=== PATIENT | female | born 1980 | race Two or more races ===

== ENCOUNTER 2018-05-28 09:47 | Day surgery (SDC) | payer OTHER ==
[~2018-05-28] VITALS: Ht 158.8 cm; Wt 68.9 kg
[~2018-05-28 09:47] MED LIST: ACYC400T PO; ALPR0.5T PO; BUPIVACAINE-EPI 0.5%-1:200000 50 ML VIAL. ONE; ESCITALOPRAM OX10 MG PO; IOHEXOL 300 MG/ML 100ML VIAL. ONE; IV RINGERS,LACTATED 1000ML 1,000 ML IV SCH; SUMA100T3 PO; SURGICEL HEMOSTAT 4X8 EACH. ONE
[2018-05-28] MEDS ORDERED: PROCHLORPERAZINE 10 MG/2 ML VIAL. IV PRN (10:00)
[2018-05-28] MEDS ORDERED: LIDOCAINE 1% PF 2 ML VIAL. ID PRN (10:00)
[2018-05-28] MEDS ORDERED: fentaNYL PF VIAL 100 MCG/2 ML VIAL IV PRN ×2 (10:00)
[2018-05-28] MEDS ORDERED: MORPHINE SULFATE 2 MG/ML VIAL. IV PRN (10:00)
[2018-05-28] MEDS ORDERED: HYDROmorphone 2 MG/ML VIAL IV PRN (10:00)
[2018-05-28 10:25] LABS: U PREG PATIENT NEGATIVE (NEG)
[2018-05-28] MEDS ORDERED: PROPOFOL 20 ML IV ONE (10:56)
[2018-05-28] MEDS ORDERED: DEXAMETHASONE SOD PHOS 20 MG/5 ML VIAL. ONE (10:56)
[2018-05-28] MEDS ORDERED: fentaNYL PF VIAL 100 MCG/2 ML VIAL ONE ×3 (10:56→13:21)
[2018-05-28] MEDS ORDERED: ROCURONIUM 50 MG/5 ML VIAL. ONE (10:56)
[2018-05-28] MEDS ORDERED: MIDAZOLAM HCL/PF 2 MG/2 ML VIAL. ONE (10:56)
[2018-05-28] MEDS ORDERED: ONDANSETRON PF 4 MG/2 ML VIAL. ONE (10:56)
[2018-05-28] MEDS ORDERED: KETOROLAC 30 MG/ML INJ FOR OR. INJ ONE (12:03)
--- NOTE | 2018-05-28 12:09 | RAD ---
EXAM: Intraoperative cholangiogram. HISTORY: Cholecystectomy. COMPARISON: None. FINDINGS: 3 fluoroscopic images of the abdomen were obtained during an intraoperative glandular grams. The images demonstrate contrast desiccation of the biliary tree and proximal duodenum. No retained stone or stricture is seen. There is outpouching along the distal common bile duct likely due to the downstream pancreatic duct. The total fluoroscopy time is 14 seconds. IMPRESSION: Intraoperative cholangiogram without evidence of a retained stone. Electronically signed by: Marlys Suarez MD (05/28/2018 12:05 PM) [place] [id number]
[2018-05-28] MEDS ORDERED: SEVOFLURANE 61 TO 120 MINUTES. IH ONE (12:10)
[2018-05-28] MEDS ORDERED: GLYCOPYRROLATE 1 MG/5 ML VIAL. ONE (12:10)
[2018-05-28] MEDS ORDERED: NEOSTIGMINE METHYLSULFATE 5 MG/5 ML SYRINGE. ONE (12:10)
--- NOTE | 2018-05-28 12:37 | PDOC4 ---
Operative Note Operative Note Operative Note: Preoperative Diagnosis: Symptomatic cholelithiasis Postoperative Diagnosis: Same Procedure: Laparoscopic cholecystectomy with intraoperative cholangiogram Surgeons: Isaac Anesthesia: Gen. Estimated Blood Loss: 10 mL Specimen: Gallbladder to pathology Drains: None Complications: None Indications: The patient is a 37 year old female who is been experiencing recurrent upper abdominal pain consistent with biliary colic. Surgical treatment was offered by means of a laparoscopic cholecystectomy. The risks of surgery were discussed which include bleeding, infection, bile duct injury, bile leak, pain, the potential for additional surgeries or procedures. The patient understands and would like to proceed. Description: The patient was taken to the operating room and laid supine on the operating table. General anesthesia was performed. The abdomen was prepped with ChloraPrep and draped in a standard surgical fashion. A small infraumbilical incision was made with a scalpel. The Veress needle was then inserted and a pneumoperitoneum was then created. A 5 mm trocar was then inserted and the laparoscope was introduced. In the upper midabdomen a 5 mm trocar was inserted and in the right upper quadrant two 2.3 mm mini lap graspers were inserted. The gallbladder was retracted cephalad. The cystic duct was dissected free from surrounding tissues. One clip was placed on the duct near the gallbladder junction. An opening was made in the duct and a cholangiocatheter placed within and secured with a clip. Using contrast dye and fluoroscopy an intraoperative cholangiogram was performed that appeared unremarkable. The clip and catheter were then withdrawn. Three clips were placed on the cystic duct and it was divided. The cystic artery was then identified, dissected free, doubly clipped and divided as well. The gallbladder was then mobilized away from the liver with cautery. The umbilical 5 millimeter trocar was exchanged for an 11 millimeter trocar. The gallbladder was then placed in an endoscopic bag and extracted at the umbilical trocar site. The fascia there was closed with an 0 Vicryl suture. All blood and irrigation fluid was suctioned and hemostasis was good. The remaining ports were removed and the pneumoperitoneum was relieved. The skin incisions were injected with half percent Marcaine with epinephrine, and all were closed using 4-0 Monocryl suture. Steri-Strips and dressings were then applied. The patient tolerated the procedure well and was sent to the recovery room in stable condition. At the end of the case all counts were correct. GILLIAN FIGUEROA MD May 28, 2018 12:37
--- NOTE | 2018-05-28 12:39 | DISCH ---
DISCHARGE INSTRUCTIONS Condition on Discharge Condition on Discharge: Stable Activity After Discharge Activity Instructions for Disc: Other, see below (no lifting over 20 lbs, no strenuous activity X 2 weeks) Diet after Discharge Diet after Discharge: Regular Wound Incision Care Wound/Incision Care: Other, see below (may remove bandaids tomorrow and shower) Follow-Up Follow up with: Dr Figueroa in 2 weeks, call for appt [phone] GILLIAN FIGUEROA MD May 28, 2018 12:39
[2018-05-28] MEDS ORDERED: oxyCODONE/APAP 5/325 1 TAB TABLET PO ONE (13:15)
[2018-05-28 14:05] VITALS: BP 110/60
--- NOTE | 2018-06-01 09:06 | PATHOLOGY ---
[facility] Accession Number: [id number] . 01 Material submitted: . GALLBLADDER AND STONES . 01 Clinical history: . Symptomatic cholelithiasis . 02 Diagnosis: Gallbladder, laparoscopic cholecystectomy: - Cholelithiasis. - Chronic cholecystitis. (JPM:catalina; 05/29/2018) QMS/05/29/2018 . 02 Comment: There is no evidence of malignancy. . 02 Electronically signed: . Familia Nunez MD, Pathologist NPI- [id number] . 01 Gross description: . The specimen is received in formalin, labeled "Saida Byrd, gallbladder and stones", is a partially previously opened gallbladder measuring 6.5 x 2.5 x 1.7 cm. The lumen and the container contains multiple multifaceted yellow-green calculi and its fragments measuring 4.0 x 3.5 x 1.5 cm in aggregate. The serosa is smooth and a blanco-purple. The mucosa is partially blanco-brown granular, and the wall measures up to 0.1 cm thick. No discrete masses are identified. [facility] tissue is submitted in A1. (SWS; 05/28/2018) SHS/SHS . 02 Pathologist provided ICD-10: K80.10 . 02 CPT . 475924 Specimen Comment: A courtesy copy of this report has been sent to Specimen Comment: [phone], . Specimen Comment: Report sent to / DR SHAW Performed at: 01 [facility] [address], [place] [id number] MD Harjinder Arnold MD Phone: [phone] Performed at: 02 [facility] [id number] MD Familia Nunez MD Phone: [phone]
== END 2018-05-28 14:05 | disposition home or self-care (01) ==
LOC: SURG 09:47
PROVIDERS: ATTEND Surgery
DX: K80.20 Calculus of gallbladder without cholecystitis without obstruction (principal); F41.9 Anxiety disorder, unspecified; F17.210 Nicotine dependence, cigarettes, uncomplicated; Z79.899 Other long term (current) drug therapy; Z72.89 Other problems related to lifestyle
CPT/HCPCS: 47563; 74300; 81025; A7015; J0690; J1100; J1885; J2250; J2405; J2704; J2710; J3010; J3490; J7030; J7120; Q9967; 88304

== ENCOUNTER → 2018-10-19 | Outpatient (CLI) | payer OTHER ==
[~2018-10-19] MED LIST changes: -BUPIVACAINE-EPI 0.5%-1:200000 50 ML VIAL. ONE; +GADOBUTROL 7.5 MMOL/7.5 ML VIAL IV ONE; -IOHEXOL 300 MG/ML 100ML VIAL. ONE; -IV RINGERS,LACTATED 1000ML 1,000 ML IV SCH; -SURGICEL HEMOSTAT 4X8 EACH. ONE
--- NOTE | 2018-10-19 14:14 | RAD ---
MRI Brain with and without contrast History: Headaches for 2 weeks in the frontal area, history of migraine headaches Technique: Multiplanar, multi sequential pre and postcontrast MR imaging was performed of the brain. Comparison: None Findings: There is no evidence of recent infarct or cytotoxic edema. The ventricles, sulci, and cisterns are within normal limits in size and configuration. There is no significant midline shift, intraaxial mass effect, or focal abnormal extra-axial fluid collection. There is no significant signal abnormality of the brain parenchyma. There is no nodular parenchymal or leptomeningeal enhancement. There is preservation of the major intracranial flow-voids at the skull base. The cerebellar tonsils are normal in location. There is no significant abnormality of the pineal gland or pituitary gland. There are addy bullosa bilaterally. There is left maxillary sinus mucous retention cyst about 1.5 cm. There is mild deviation nasal septum to the right. There are no air-fluid levels of the paranasal sinuses. The mastoid air cells are aerated. There is preserved marrow signal of the clivus. Impression: 1. There is no significant intracranial abnormality. Electronically signed by: Ba Serrano MD (10/19/2018 2:10 PM) [id number]
== END | disposition home or self-care (01) ==
LOC: MRI 12:38
PROVIDERS: ATTEND Family Medicine
DX: J34.1 Cyst and mucocele of nose and nasal sinus (principal); J34.2 Deviated nasal septum
CPT/HCPCS: 70553; A9585